=== PATIENT | male | born 1980 | race Hispanic/Latino ===

== ENCOUNTER 2016-07-08 17:05 | Emergency (ER) | payer MEDICARE, MEDICAID ==
--- NOTE | 2016-07-08 18:02 | CT ---
EXAM DESCRIPTION: CT HEAD WITHOUT IV CONTRAST CLINICAL HISTORY: 36 y/o MFall - Hit head COMPARISON: None. TECHNIQUE: Contiguous axial images were obtained through the head without IV contrast. FINDINGS: The ventricles and sulci appear unremarkable. No abnormal areas of decreased density. No acute hemorrhage. No mass lesions. Atherosclerotic calcifications in the distal vertebral arteries. Atherosclerotic calcifications. Mild mucosal thickening within the left maxillary sinus and in some ethmoid air cells. Surgical clips and postsurgical changes in the left facial region. No depressed calvarial fractures. IMPRESSION: No acute intracranial abnormality is identified. Electronically signed by: Saeed Ralph MD 07/08/2016 18:01
--- NOTE | 2016-07-08 18:40 | ED.PDOC ---
History of Present Illness - General Chief Complaint: Head Injury Stated Complaint: Fall in shower - hit head Time Seen by Provider: 07/08/16 18:34 Source: patient, family Additional Information: Patient state just james taking a shower tried to get up from his wheelchair but stepped on slippery floor slipped and fellon his head hitting the commode denies LOC,neck pain,shoulder or hip pain - History of Present Illness Occurred: just prior to arrival Head Injury Location: occipital Method of Injury: fell Loss of Consciousness: no loss of consciousness Associated Symptoms: denies symptoms Allergies/Adverse Reactions: Allergies NO KNOWN ALLERGY Allergy (Verified 06/08/14 18:44) Home Medications: Ambulatory Orders Carvedilol [Coreg] 6.25 mg PO BID #0 01/09/13 Human Insulin Aspart [Novolog] 0 unit SUBCU QID #0 01/09/13 Insulin Glargine [Lantus] 10 unit SC BID #0 01/09/13 Lisinopril 20 mg PO DAILY #0 01/09/13 Guaifenesin-Codeine [Cheratussin AC 100-10 mg/5Ml] 10 ml PO Q4-6H PRN #100 ml Amoxicillin [Amoxil] 500 mg PO TID #30 cap 08/06/14 Valacyclovir HCl [Valtrex] 1 gm PO Q8H #21 tab 11/04/15 Review of Systems - Review of Systems Constitutional: States: no symptoms reported EENTM: States: other - visual problem from cva in the past Respiratory: States: no symptoms reported Cardiology: States: no symptoms reported Gastrointestinal/Abdominal: States: no symptoms reported Genitourinary: States: no symptoms reported Musculoskeletal: States: no symptoms reported Skin: States: no symptoms reported Neurological: States: pre-existing deficit - previous cva from ruptured brain aneurysm, weakness Past Medical History (General) - Patient Medical History Hx Seizures: Yes Hx Stroke: Yes - Brain aneurysm Hx Dementia: No Hx Asthma: Yes Hx of COPD: No Hx Cardiac Disorders: Yes Hx Congestive Heart Failure: No Hx Pacemaker: No Hx Hypertension: Yes Hx Thyroid Disease: No Hx Diabetes: Yes Hx Gastroesophageal Reflux: No Hx Renal Disease: No Hx Cancer: No Hx of HIV: No Hx Hepatitis C: No Hx MRSA: No Other Surgeries:: facial reconstruction,tracheostomy - Vaccination History Hx Tetanus, Diphtheria Vaccination: Yes Hx Influenza Vaccination: Yes Hx Pneumococcal Vaccination: No - Social History Hx Tobacco Use: Yes Hx Chewing Tobacco Use: No Hx Alcohol Use: No Hx Substance Use: No Hx Substance Use Treatment: Yes Hx Depression: Yes Hx Physical Abuse: No Hx Emotional Abuse: No Hx Suspected Abuse: No - Activities of Daily Living Patient Lives Alone: No - lives with family Grooming Ability: Standby Assistance Eating (Feeding) Ability: Standby Assistance Toileting Ability: Standby Assistance - Female History Patient : No Family Medical History - Family History Grandparents Family History: No Known Hx Family Diabetes: Yes Physical Exam - Physical Exam General Appearance: Alert, No apparent distress Head Injury: no evidence of injury, tenderness - back of head Eye Exam: bilateral other - legally blind left eye ENT Exam: hearing grossly normal, no evidence of ENT injury, no dental injury Neck Exam: non-tender, full range of motion, normal alignment Cardiovascular/Respiratory: regular rate, rhythm, no M/R/G, no JVD, normal breath sounds, no respiratory distress Gastrointestinal/Abdominal: non tender, soft, no organomegaly Back Exam: normal inspection, no CVA tenderness Extremity: other - 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 Exam: normal hearing, normal speech, facial weakness - left side residual Coordination/Gait: normal finger to nose, other - wheelchair bound Skin Exam: normal color, warm/dry Lymphatic: no adenopathy - [place] Coma Score Best Eye Response ([place]): (4) open spontaneously Best Verbal Response ([place]): (5) oriented Best Motor Response ([place]): (6) obeys commands [place] Total: 15 Progress - EKG/XRAY/CT CT: head w/o-no acute intracranial abnormality noted Departure - Departure Clinical Impression: Fall at home Qualifiers: Encounter type: initial encounter Qualifier Code: (W19.XXXA) Unspecified fall, initial encounter Head contusion Qualifiers: Encounter type: initial encounter Laterality: unspecified laterality Time of Disposition: 18:52 Disposition: Discharge to Home or Self Care Condition: Good Departure Forms: ED Discharge - Pt. Copy, Patient Portal Self Enrollment Home Medications: Ambulatory Orders Carvedilol [Coreg] 6.25 mg PO BID #0 01/09/13 Human Insulin Aspart [Novolog] 0 unit SUBCU QID #0 01/09/13 Insulin Glargine [Lantus] 10 unit SC BID #0 01/09/13 Lisinopril 20 mg PO DAILY #0 01/09/13 Guaifenesin-Codeine [Cheratussin AC 100-10 mg/5Ml] 10 ml PO Q4-6H PRN #100 ml Amoxicillin [Amoxil] 500 mg PO TID #30 cap 08/06/14 Valacyclovir HCl [Valtrex] 1 gm PO Q8H #21 tab 11/04/15 Additional Instructions: RETURN TO EMERGENCY ROOM NEEDED
[2016-07-08 19:02] VITALS: O2SAT 94
[2016-07-08 19:04] VITALS: BP 129/86; TEMP 97.8
== END 2016-07-08 19:02 | disposition home or self-care (01) ==
LOC: ER 17:05
DX: S00.93XA Contusion of unspecified part of head, initial encounter (principal); J45.909 Unspecified asthma, uncomplicated; I10 Essential (primary) hypertension; E11.9 Type 2 diabetes mellitus without complications; I69.90 Unspecified sequelae of unspecified cerebrovascular disease; Z79.4 Long term (current) use of insulin; Z79.899 Other long term (current) drug therapy; Z87.891 Personal history of nicotine dependence; W01.198A Fall on same level from slipping, tripping and stumbling with subsequent striking against other object, initial encounter; Y93.E1 Activity, personal bathing and showering; Y92.002 Bathroom of unspecified non-institutional (private) residence as the place of occurrence of the external cause

== ENCOUNTER → 2017-10-26 | Outpatient (CLI) | payer MEDICARE, MEDICAID | LOC: LAB.O 15:32 | PROVIDERS: ATTEND Ophthalmology | DX: G90.09 Other idiopathic peripheral autonomic neuropathy (principal); H53.9 Unspecified visual disturbance; H02.539 Eyelid retraction unspecified eye, unspecified lid; H53.40 Unspecified visual field defects; H47.099 Other disorders of optic nerve, not elsewhere classified, unspecified eye; H50.00 Unspecified esotropia; E13.9 Other specified diabetes mellitus without complications ==

== ENCOUNTER 2017-12-21 16:33 | Emergency (ER) | payer MEDICARE, MEDICAID ==
[2017-12-21 17:03] VITALS: O2SAT 95
--- NOTE | 2017-12-21 18:08 | ED.PDOC ---
History of Present Illness - General Chief Complaint: General Stated Complaint: R calf discomfort Time Seen by Provider: 12/21/17 17:23 Source: patient Exam Limitations: no limitations - History of Present Illness Initial Comments: Reggie Henao 37 y/o male stated that he had right calf pain since December 14- one week and had been constant since then .Stated does not feel any pain since he had the hemorrhagic CVA from brain aneurysm -2013.Denies history of trauma or /fall.Has DM2 on insulin and HTN,also has bilateral dvt legs while hospitalized for his cva at [facility]. Timing/Duration: 1 week, constant Severity: moderate Improving Factors: nothing Worsening Factors: nothing Associated Symptoms: denies symptoms Allergies/Adverse Reactions: Allergies NO KNOWN ALLERGY Allergy (Verified 12/21/17 17:06) Home Medications: Ambulatory Orders Carvedilol [Coreg] 6.25 mg PO BID #0 01/09/13 Human Insulin Aspart [Novolog] 0 unit SUBCU QID #0 01/09/13 Insulin Glargine [Lantus] 10 unit SC BID #0 01/09/13 Lisinopril 20 mg PO DAILY #0 01/09/13 Guaifenesin-Codeine [Cheratussin AC 100-10 mg/5Ml] 10 ml PO Q4-6H PRN #100 ml Amoxicillin [Amoxil] 500 mg PO TID #30 cap 08/06/14 Valacyclovir HCl [Valtrex] 1 gm PO Q8H #21 tab 11/04/15 Review of Systems - Review of Systems Constitutional: States: no symptoms reported EENTM: States: no symptoms reported Respiratory: States: no symptoms reported Cardiology: States: no symptoms reported Gastrointestinal/Abdominal: States: no symptoms reported Genitourinary: States: no symptoms reported Musculoskeletal: States: see HPI Neurological: States: see HPI, pre-existing deficit - post cva Endocrine: States: see HPI Past Medical History (General) - Patient Medical History Hx Seizures: Yes Hx Stroke: Yes - hemorrhagic Hx Dementia: No Hx Asthma: Yes Hx of COPD: No Hx Cardiac Disorders: Yes Hx Congestive Heart Failure: No Hx Pacemaker: No Hx Hypertension: Yes Hx Thyroid Disease: No Hx Diabetes: Yes Hx Gastroesophageal Reflux: No Hx Renal Disease: No Hx Cancer: No Hx of HIV: No Hx Hepatitis C: No Hx MRSA: No Surgical History: other - facial reconstuction,tracheostomy - Vaccination History Hx Tetanus, Diphtheria Vaccination: Yes Hx Influenza Vaccination: Yes - 2016 Hx Pneumococcal Vaccination: No - Social History Hx Tobacco Use: Yes - Quit 2013 Hx Chewing Tobacco Use: No Hx Alcohol Use: No Hx Substance Use: No Hx Substance Use Treatment: Yes Hx Depression: Yes Hx Physical Abuse: No Hx Emotional Abuse: No Hx Suspected Abuse: No - Activities of Daily Living Patient Lives Alone: No - parents Grooming Ability: Moderate Assistance Eating (Feeding) Ability: Independent Toileting Ability: Moderate Assistance - Female History Patient : No Family Medical History - Family History Grandparents Family History: No Known Living Status: Still Living Hx Family Diabetes: Yes Physical Exam - Physical Exam General Appearance: Alert, Comfortable, No apparent distress Eye Exam: right normal, left other - enucleation Ears, Nose, Throat: hearing grossly normal, normal ENT inspection, normal pharynx Neck: non-tender, full range of motion, normal inspection Respiratory: chest non-tender, lungs clear, normal breath sounds, no respiratory distress Cardiovascular/Chest: normal peripheral pulses, regular rate, rhythm, no murmur Peripheral Pulses: radial,right: 2+, radial,left: 2+ Gastrointestinal/Abdominal: non tender, soft Back Exam: no CVA tenderness, no vertebral tenderness Extremity: normal inspection, calf tenderness, pedal edema - 1+, other - negative Homans sign Neurologic: alert, oriented x 3, motor weakness - both lower extremity, sensory deficit - lower extremity Skin Exam: normal color, warm/dry Lymphatic: no adenopathy Progress - Progress Progress: 12/21/17 18:19 Vital Signs - 8 hr 12/21/17 16:52 Temperature 98.4 F Pulse Rate [ 78 Left Radial] Respiratory 20 Rate Blood Pressure 128/91 [Left Arm] O2 Sat by Pulse 95 Oximetry 12/21/17 19:37 Discuss test result with patient in the presence of his mom explaining mostly d - dimer result and the need for follow up with his primary MD December 24/2018 - Results/Orders Results/Orders: Laboratory Results - last 24 hr 12/21/17 12/21/17 18:22 18:22 WBC 5.5 RBC 4.98 Hgb 16.5 Hct 48.2 MCV 96.7 H MCH 33.1 H MCHC 34.1 RDW 12.5 Plt Count 252 MPV 8.3 Absolute Neuts (auto) 3.20 Absolute Lymphs (auto) 1.50 Absolute Monos (auto) 0.40 Absolute Eos (auto) 0.30 Absolute Basos (auto) 0.10 Neutrophils % 58.7 Lymphocytes % 27.9 Monocytes % 7.2 Eosinophils % 4.8 Basophils % 1.4 PT 10.9 INR 0.940 PTT (SP) 35.6 D-Dimer, Quantitative 121 Sodium 138 Potassium 4.0 Chloride 103 Carbon Dioxide 29 Anion Gap 10.0 L BUN 21 H Creatinine 1.18 BUN/Creatinine Ratio 17.8 Random Glucose 156 H Serum Osmolality 281.8 Calcium 9.6 Magnesium 1.7 L Total Bilirubin 0.2 Direct Bilirubin < 0.1 Indirect Bilirubin 0.1 L AST 29 ALT 36 Alkaline Phosphatase 83 Creatine Kinase 265 H* CK-MB (CK-2) 23.7 H* CK-MB (CK-2) % 8.94 H Troponin I 0.02 Serum Total Protein 7.4 Albumin 4.0 Departure - Departure Clinical Impression: Leg pain, right, History of DVT of lower extremity Time of Disposition: 19:36 Disposition: Discharge to Home or Self Care Condition: Fair Departure Forms: ED Discharge - Pt. Copy, Patient Portal Self Enrollment Instructions: Deep Vein Thrombosis (Blood Clots in the Legs) (DC), Foot Pumping Exercises, How to Prevent Blood Clots Referrals: Conner Booker MD [Primary Care Provider] - 1-2 Weeks Home Medications: Ambulatory Orders Carvedilol [Coreg] 6.25 mg PO BID #0 01/09/13 Human Insulin Aspart [Novolog] 0 unit SUBCU QID #0 01/09/13 Insulin Glargine [Lantus] 10 unit SC BID #0 01/09/13 Lisinopril 20 mg PO DAILY #0 01/09/13 Guaifenesin-Codeine [Cheratussin AC 100-10 mg/5Ml] 10 ml PO Q4-6H PRN #100 ml Amoxicillin [Amoxil] 500 mg PO TID #30 cap 08/06/14 Valacyclovir HCl [Valtrex] 1 gm PO Q8H #21 tab 11/04/15 Additional Instructions: FOLLOW UP WITH PRIMARY MD 24 December 2017 ;Return to ER as needed
[2017-12-21 20:00] VITALS: BP 131/85; TEMP 97.8
== END 2017-12-21 20:00 | disposition home or self-care (01) ==
LOC: ER 16:33
DX: M79.661 Pain in right lower leg (principal); I10 Essential (primary) hypertension; E11.9 Type 2 diabetes mellitus without complications; Z86.73 Personal history of transient ischemic attack (TIA), and cerebral infarction without residual deficits; Z86.718 Personal history of other venous thrombosis and embolism; Z79.4 Long term (current) use of insulin; Z79.899 Other long term (current) drug therapy

== ENCOUNTER 2018-08-18 13:45 | Inpatient (IN) | payer MEDICARE, MEDICAID ==
[2018-08-18] MEDS ORDERED: KETOROLAC TROMETHAMINE INJ 30 MG/ML VIAL IM ONE (14:02)
[2018-08-18] MEDS ORDERED: IPRATROPIUM/ALBUTEROL 3 ML VIAL NEB ONE ×3 (14:03→16:11)
[2018-08-18] MEDS ORDERED: MAGNESIUM SULFATE PREMIX 4GM 4 GM in PREMIX BAG 1 BAG IVPB ONE (15:23)
[2018-08-18] MEDS ORDERED: SODIUM CHLORIDE 0.9% 1000ML 1,000 ML IVS ONE (15:23)
--- NOTE | 2018-08-18 15:30 | RAD ---
EXAM DESCRIPTION: Femur, right CLINICAL HISTORY: 38 years Male, right leg pain 2 days COMPARISON: None. FINDINGS: 2 view radiographs of the right femur were obtained, including 4 images. There is no evidence of acute fracture or destructive bony lesion. The superior portion of the femoral head is excluded on the AP view but appears intact on the oblique lateral view. The hip joint space and the knee joint spaces appear maintained. IMPRESSION: No significant bony abnormality identified in the right femur. Electronically signed by: Abel Gabriel MD 08/18/2018 3:27 PM [facility]
--- NOTE | 2018-08-18 15:35 | RAD ---
EXAM DESCRIPTION: Tibia/Fibula,Right CLINICAL HISTORY: 38 years Male, right leg pain 2 days COMPARISON: None. FINDINGS: 2 view radiographs of the right lower leg demonstrate no evidence of acute fracture or dislocation or destructive bony lesion. There is minimal cut off of the inferior margin of the lateral malleolus on the AP view. Soft tissues are essentially unremarkable. IMPRESSION: No significant bony abnormality identified in the right lower leg. Electronically signed by: Abel Gabriel MD 08/18/2018 3:32 PM [facility]
--- NOTE | 2018-08-18 15:42 | RAD ---
EXAM DESCRIPTION: Chest,1 View CLINICAL HISTORY: 38 years Male, hypoxia COMPARISON: 2 view chest dated August 06, 2014. FINDINGS: Heart size appears borderline prominent, although accentuated by technique. There is patient rotation to the left, and hilar and mediastinal structures are not well evaluated. The lungs are more underinflated than on the previous study, and in particular, there is again relative elevation of the right hemidiaphragm. The lungs appear grossly clear. No obvious pneumothorax is identified. IMPRESSION: Pulmonary hypoinflation. No radiographic evidence of acute cardiopulmonary disease. Electronically signed by: Abel Gabriel MD 08/18/2018 3:38 PM [facility]
[2018-08-18] MEDS ORDERED: MAGNESIUM SULFATE PREMIX 4GM 50 ML IVPB ONE (15:45)
[2018-08-18] MEDS ORDERED: AZITHROMYCIN IV 500 MG in SODIUM CHLORIDE 0.9% 250ML 250 ML IVPB ONE (16:04)
[2018-08-18] MEDS ORDERED: CEFEPIME 2 GM in SODIUM CHL 0.9% 50ML MIN-BAG+ 50 ML IVPB ONE (16:05)
[2018-08-18] MEDS ORDERED: ACETYLCYSTEIN 20 % 6,000 MG/30 ML VIAL NEB ONE (16:11)
[2018-08-18] MEDS ORDERED: CEFEPIME 2 GM VIAL ONE (16:25)
[2018-08-18] MEDS ORDERED: SODIUM CHL 0.9% 50ML MIN-BAG+ 50 ML IVPB ONE (16:26)
--- NOTE | 2018-08-18 16:27 | ED.PDOC ---
History of Present Illness - General Chief Complaint: General Stated Complaint: R leg discomfort x 3 months Time Seen by Provider: 08/18/18 13:46 Source: patient Exam Limitations: no limitations - History of Present Illness Initial Comments: The patient is a 38-year-old male presenting to the emergency room mainly due to right lower extremity pain. He does have some chronic pain in the right lower extremity but pain got worse 3 days ago after he was being pushed in his wheelchair and home his right foot on a door jam which brought his right leg around and strained the leg. He has been having significant pain since that time and has not really been getting out of bed and moving around. He is a little more fatigued than normal but does not really feel all that short of breath. He has however 87% on room air and does correct to 93% with 3 L. The patient has coarse rhonchi and significant Rales at bilateral bases. No real wheezes currently. He is mildly tachypneic upon arrival. He does not really appear to be in respiratory distress. Again the main reason he showed up here with right lower extremity pain. 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 He also has a history of a hemorrhagic stroke giving him some weakness, balance problems, slurring of speech and visual issues. the patient is alert and oriented and very knowledgeable about his medical history. He is pleasant and cooperative. The patient really prefers to lie on the left side secondary to the right lower extremity pain. He is on chronic pain medications but has had his pain medications reduced over the last few months as per his request. He is an insulin-dependent diabetic. He reports fair control recently. Passive and active range of motion of the right lower extremity are preserved. He does have some chronic decreased sensation to the right lower extremity which is at its baseline. The pain that he is reporting is more of a deep achy type pain in the thigh, which is a little worse with palpation and significantly worse with movement. He also has some mild pain posteriorly just above the ankle on the right. No definite palpable cord. This is not any worse with palpation. No chest pain, palpitations or acute onset shortness of breath. No history of any heart problems according to him. Timing/Duration: unsure Severity: moderate Improving Factors: nothing Worsening Factors: movement Associated Symptoms: denies symptoms Allergies/Adverse Reactions: Allergies NO KNOWN ALLERGY Allergy (Verified 12/21/17 17:06) Home Medications: Ambulatory Orders Amlodipine Besylate 5 mg PO BID 08/18/18 Baclofen 10 mg PO BID 08/18/18 Carbamazepine 300 mg PO TID 08/18/18 Carvedilol 25 mg PO BID 08/18/18 Chlorthalidone 50 mg PO BID 08/18/18 Clonazepam 1 mg PO BID 08/18/18 Gabapentin 300 mg PO TID 08/18/18 Insulin Glargine [Toujeo Solostar] 55 unit SC DAILY 08/18/18 Insulin Lispro [Humalog] 0 unit SC QID PRN 08/18/18 Oxycodone HCl 10 mg PO BID 08/18/18 Review of Systems - Review of Systems Constitutional: States: malaise EENTM: States: no symptoms reported Respiratory: States: cough - increased productivity of sputum compared to normal Cardiology: States: no symptoms reported Gastrointestinal/Abdominal: States: no symptoms reported Genitourinary: States: no symptoms reported Musculoskeletal: States: see HPI Skin: States: no symptoms reported Neurological: States: see HPI - numerous chronic changes Endocrine: States: no symptoms reported, increased thirst All other Systems: No Change from Baseline Past Medical History (General) - Patient Medical History Hx Seizures: Yes Hx Stroke: Yes - 2013 Hx Dementia: No Hx Asthma: Yes Hx of COPD: No Hx Cardiac Disorders: Yes Hx Congestive Heart Failure: No Hx Pacemaker: No Hx Hypertension: Yes Hx Thyroid Disease: No Hx Diabetes: Yes Hx Gastroesophageal Reflux: No Hx Renal Disease: No Hx Cancer: No Hx of HIV: No Hx Hepatitis C: No Hx MRSA: No - Vaccination History Hx Tetanus, Diphtheria Vaccination: Yes Hx Influenza Vaccination: No Hx Pneumococcal Vaccination: No - Social History Hx Tobacco Use: Yes Hx Chewing Tobacco Use: No Hx Alcohol Use: No Hx Substance Use: No Hx Substance Use Treatment: Yes Hx Depression: Yes Hx Physical Abuse: No Hx Emotional Abuse: No Hx Suspected Abuse: No - Female History Patient : No Family Medical History - Family History Grandparents Family History: No Known Living Status: Still Living Hx Family Diabetes: Yes Physical Exam - Physical Exam General Appearance: Alert, No apparent distress Eye Exam: bilateral other - abnormal extraocular movements with bilateral mild proptosis which family reports is normal Ears, Nose, Throat: hearing grossly normal, normal ENT inspection, other - his voice is hoarse. His speech is slurred. Neck: non-tender, full range of motion Respiratory: accessory muscle use - mild, rales - at the bases, rhonchi - scattered throughout Cardiovascular/Chest: normal peripheral pulses, regular rate, rhythm, no edema Peripheral Pulses: radial,right: 2+, radial,left: 2+, dorsalis pedis,right: 2+, dorsalis pedis,left: 2+ Gastrointestinal/Abdominal: non tender - morbidly obese, soft Rectal Exam: deferred Back Exam: no CVA tenderness, no vertebral tenderness Extremity: normal range of motion - passive, no pedal edema, no calf tenderness - to palpation but he does report some pain to the right calf, normal capillary refill, pelvis stable Neurologic: alert, normal mood/affect, oriented x 3, EOM palsy, motor weakness, other - chronic neurological changes are present, but no acute changes according to patient andd his family Skin Exam: normal color Comments: Vital Signs - 24 hr 08/18/18 08/18/18 08/18/18 13:45 14:24 14:30 Temperature 97.6 F Pulse Rate 92 H Pulse Rate [ 103 H 98 H Left Radial] Respiratory 20 20 16 Rate Blood Pressure 155/120 145/112 [Left Arm] O2 Sat by Pulse 87 L 93 L 93 L Oximetry 08/18/18 08/18/18 08/18/18 15:00 16:00 16:24 Temperature Pulse Rate 86 Pulse Rate [ 58 L 91 H Left Radial] Respiratory 20 20 12 Rate Blood Pressure 144/102 97/81 [Left Arm] O2 Sat by Pulse 93 L 92 L 95 Oximetry the lower blood pressure 97/81 is with the patient lying sideways in the blood pressure cuff up in the air. Progress - Progress Progress: 08/18/18 16:34 the patient is a 38-year-old male presenting to the emergency room with right lower extremity pain that is most likely due to hyperextending or hyperabducting the leg a few days ago accidentally. He has received a dose of Toradol for this and can continue his pain medications that he normally takes. Additionally the patient has been found to be significantly hypoxic with significant atelectasis and what is probably a superimposed pneumonia. blood and sputum cultures are being done. He is receiving DuoNeb breathing treatments and Mucomyst breathing treatments. We are also doing BiPAP on the patient to help recruit lung tissue. D-dimer and BNP are within normal limits. However, tomorrow when it is available, a right lower extremity Doppler can be performed to make sure that there is no evidence of any recurrent DVT. He reports that he does still take eliquis. He has been compliant with it and did take a dose this morning. He may benefit from CPT. Continue aggressive respiratory care as well as encouraging position changes and deep breathing. It is possible patient may have underlying pickwickian syndrome. He will simply need to be monitored to determine this. An ABG when the patient is more at his baseline may be more telling as well. admit for continued care. Continue oxygen. He has received a very small fluid bolus for the mild acute renal failure and is receiving a dose of IV magnesium for the hypomagnesemia. This may be making the muscle cramping worse. 08/18/18 16:40 - Results/Orders Results/Orders: Single view chest x-ray shows poor inflation of the lung tissue. No overt card iomegaly. Laboratory Tests 08/18/18 08/18/18 08/18/18 14:37 14:37 14:37 WBC 6.6 RBC 5.14 Hgb 16.8 Hct 50.1 MCV 97.6 H MCH 32.7 H MCHC 33.5 RDW 12.6 Plt Count 238 MPV 8.0 Absolute Neuts (auto) 5.00 Absolute Lymphs (auto) 1.00 Absolute Monos (auto) 0.40 Absolute Eos (auto) 0.20 Absolute Basos (auto) 0.00 Neutrophils % 75.3 Lymphocytes % 15.9 L Monocytes % 5.4 Eosinophils % 2.7 Basophils % 0.7 PTT (SP) 32.8 H D-Dimer, Quantitative 0.33 Sodium 140 Potassium 4.4 Chloride 102 Carbon Dioxide 26 Anion Gap 16.4 BUN 28 H Creatinine 1.59 H BUN/Creatinine Ratio 17.6 Random Glucose 171 H Serum Osmolality 288.9 Lactic Acid Calcium 9.2 Magnesium 1.5 L Total Bilirubin 0.7 AST 32 ALT 31 Alkaline Phosphatase 87 Creatine Kinase 351 H* CK-MB (CK-2) 16.6 H* CK-MB (CK-2) % 4.73 H Troponin I 0.02 B-Natriuretic Peptide < 5.0 Serum Total Protein 7.5 Albumin 3.8 Globulin 3.7 H Albumin/Globulin Ratio 1.0 L 08/18/18 14:37 WBC RBC Hgb Hct MCV MCH MCHC RDW Plt Count MPV Absolute Neuts (auto) Absolute Lymphs (auto) Absolute Monos (auto) Absolute Eos (auto) Absolute Basos (auto) Neutrophils % Lymphocytes % Monocytes % Eosinophils % Basophils % PTT (SP) D-Dimer, Quantitative Sodium Potassium Chloride Carbon Dioxide Anion Gap BUN Creatinine BUN/Creatinine Ratio Random Glucose Serum Osmolality Lactic Acid 1.1 Calcium Magnesium Total Bilirubin AST ALT Alkaline Phosphatase Creatine Kinase CK-MB (CK-2) CK-MB (CK-2) % Troponin I B-Natriuretic Peptide Serum Total Protein Albumin Globulin Albumin/Globulin Ratio EKG shows normal sinus rhythm at 95 bpm. Q waves in inferior leads. No ST segment or T-wave changes demonstrative of acute ischemia. Departure - Departure Clinical Impression: Atelectasis of both lungs, Hypomagnesemia, Hypoxia Pneumonia Qualifiers: Pneumonia type: due to unspecified organism Laterality: bilateral Lung location: lower lobe of lung Qualified Code(s): J18.1 - Lobar pneumonia, unspecified organism Acute renal failure Qualifiers: Acute renal failure type: unspecified Qualified Code(s): N17.9 - Acute kidney failure, unspecified Disposition: Admit Patient Departure Forms: ED Discharge - Pt. Copy, Patient Portal Self Enrollment Referrals: Conner Booker MD [Primary Care Provider] - 1-2 Weeks Home Medications: Ambulatory Orders Amlodipine Besylate 5 mg PO BID 08/18/18 Baclofen 10 mg PO BID 08/18/18 Carbamazepine 300 mg PO TID 08/18/18 Carvedilol 25 mg PO BID 08/18/18 Chlorthalidone 50 mg PO BID 08/18/18 Clonazepam 1 mg PO BID 08/18/18 Gabapentin 300 mg PO TID 08/18/18 Insulin Glargine [Toujeo Solostar] 55 unit SC DAILY 08/18/18 Insulin Lispro [Humalog] 0 unit SC QID PRN 08/18/18 Oxycodone HCl 10 mg PO BID 08/18/18 Decision To Admit - Decistion To Admit Decision to Admit Reason: Medical Nature Decision to Admit Date: 08/18/18 Decision to Admit Time: 16:42
--- NOTE | 2018-08-18 16:57 | HP ---
SUPERVISING PHYSICIAN: Jeffery Li MD CHIEF COMPLAINT: Right lower leg discomfort. HISTORY OF PRESENT ILLNESS: Mr. Henao is a 38 year-old male who presented to the Emergency Room today with complaints of right lower extremity pain. He has a history of a previous cerebral aneurysm in 2013 that resulted in some lower extremity weakness. He is wheelchair dependent but is able to transfer with minimal assistance. He reports that in the last several days he had an issue with his wheelchair when he was struck in a door jam with his right leg and the week before actually gone down his wheelchair ramp and had fallen out of the wheelchair due to the wheelchair tipping over. He normally has a degree of pain in his right lower extremity but the pain has been significantly worsening over the last week, especially more so in the last 3 days. He tells me that he has been basically laying in bed in a position as that is the only position he could get comfortable in. He has been managed on pain management and seeing a physician in [facility] in the past week and has been on fairly high doses of Oxycodone and has taken himself down in dosage as he feels he has been on too high of a dose over the last several years. He does report he is fairly active at home but in the last several days he just lays in bed. He also has a history of a DVT after his stroke in 2013, bilateral lower extremities that resulted in a pulmonary embolus which he has now been on Eliquis. In the Emergency Room, his vital signs showed he was hypoxic on room air at 87% and was also fairly hypertensive with a blood pressure of 155/120 and tachycardiac. He was given breathing treatments which resulted in increasing his 02 to 93% on nasal cannula. Laboratory studies showed he had a normal white count. Chemistries showed his renal function was slightly elevated with a creatinine of 1.59 but magnesium was low at 1.5. His physical assessment revealed audible bilateral rales and rhonchi, even with a stethoscope. Radiographic studies of a chest x-ray showed pulmonary hypoinflation but no evidence of acute cardiopulmonary disease. He also had his tib/fib and femur on the right x-rayed with no acute findings of fracture or dislocation. Coagulation studies showed he had a PT of 32.9. D-dimer was normal at 0.33. Dr. Alicia started the patient on BiPAP in efforts to recruit some more lung area given that the patient was obviously having a large degree of atelectasis, especially on the left side as he had been basically nothing but laying in the position for several days. The concern is that he has developed pneumonia and at that point, the decision was to start him on Cefepime and azithromycin as well as breathing treatments with Duoneb. It has been requested now that the patient be admitted for continuation of management and further evaluation with concerns for possibly developing community acquired pneumonia and need to scan his lower extremities with the history of a DVT even though his D-dimer was negative. Again, he was also showing some hypertensive issues and this will need to be further addressed in regards to his medication regimen. He was admitted in stable condition. PAST MEDICAL HISTORY: 1. Hypertension. 2. Diabetes mellitus type 2. 3. Hemorrhagic stroke in 2013 with residual left-sided facial weakness and bilateral lower extremity weakness. 4. Pulmonary embolus with DVT in 2014 status post hemorrhagic stroke. PAST SURGICAL HISTORY: No major surgeries listed. CURRENT MEDICATIONS: Awaiting final review. Provided were: 1. Multivitamins and minerals, one daily. 2. Eliquis 5 mg daily. 3. Clonazepam 1 mg daily. 4. Lisinopril 40 mg daily. 5. Gabapentin 600 mg t.i.d. 6. Carbamazepine 300 mg t.i.d. 7. Humalog sliding scale. 8. Toujeo 55 units daily. 9. Baclofen 10 mg b.i.d. 10. Amlodipine 5 mg b.i.d. 11. Chlorthalidone 50 mg b.i.d. 12. Carvedilol 25 mg b.i.d. ALLERGIES: No known drug allergies. FAMILY HISTORY: Mother has history of hypertension. Father has history of hypertension, both living. His paternal grandfather at age 72 from diabetes complications. He has 5 children who are all healthy. SOCIAL HISTORY: The patient is disabled, living by himself, raising 2 children, they are in the 5th and 6th grade, with assistance from his parents and other family members. He has never smoked. He drinks alcohol very rarely and denies any history of drug use. He is wheelchair bound. REVIEW OF SYSTEMS: CONSTITUTIONAL: General malaise. Negative for chills, fevers, or intentional weight changes. HEENT: Negative for any nasal congestion, earache, sore throat. RESPIRATORY: Increasing productive sputum with a cough with positive shortness of breath but negative for any wheezing. CARDIAC: Negative for chest pain, palpitations, syncopal episodes. GASTROINTESTINAL: Negative for nausea, vomiting, diarrhea , constipation or abdominal pain. GENITOURINARY Denies dysuria, hematuria, polyuria MUSCULOSKELETAL: As noted in history of present illness. SKIN: Negative for skin breakdown, rashes or lesions. NEUROLOGICAL: Positive for multiple chronic changes secondary to hemorrhagic stroke in 2014 as noted in history of present illness. PHYSICAL EXAMINATION: VITAL SIGNS: On presentation to the Emergency Room his temperature was 97.6, pulse 103, blood pressure 155/120, respirations 20, saturation 97% on room air, after [id number] of treatment and started on BiPAP, after breathing treatments blood pressure was 97/81, respirations 20, saturation 92% on 28% FI02 on BIPAP. Admission weight 126.1 kg. GENERAL: The patient is very pleasant, appears to be in no acute distress. HEENT: Tympanic membranes were clear bilaterally, notable bilateral proptosis which is his baseline according to the patient with abnormal ocular movements status post hemorrhagic stroke. Oropharynx pink and moist without any lesions. He does have some mild slurring of speech which is apparently his baseline level. NECK: Supple, non-tender, full range of motion. CHEST: Notable for some rales at the bases with increased rhonchi throughout all velásquez with some obvious accessory muscle usage prior to BiPAP. CARDIOVASCULAR: Regular rate and rhythm with no appreciable murmurs, rubs, or gallops. ABDOMEN: Morbidly obese but soft, non-tender with positive bowel sounds. BACK: No CVA tenderness, no vertebral tenderness. EXTREMITIES: Notable for some pain on palpation of the right calf and hip area. Pelvis ring appears to be stable. He does have normal range of motion, both passive and active. No reported paresthesia and pulses distally to 2+ bilaterally. NEUROLOGIC: He is alert and oriented x 3. Extraocular movement palsy as noted above status post hemorrhagic stroke and at baseline levels with overall motor weakness, chronic to upper and lower extremities with no obvious focal deficits. Facial features show a left droop with proptosis more pronounced on the left than the right which is at baseline levels according to the patient with no reported neurological changes per the patient and family. SKIN: Normal, pink, warm and dry with no lesions, rashes or bruising deformities. RECTAL: Exam deferred. LABORATORY: CBC showed normal white count of 6,600, no left shift. Coagulation studies showed a PT of 32.8 with a normal D-dimer. Chemistries showed normal electrolytes, BUN elevated at 28, creatinine 1.59. Lactic acid normal at 1.9, magnesium low at 1.5. Liver functions all within normal limits. CPK was elevated at 351. Troponin was within normal limits at 0.02. BNP less than 5. Albumin 3.8. Urinalysis pending. Blood cultures pending. Influenza A and B by PCR showed negative for A and B. RADIOLOGY: Tib/fib and femur x-ray of the right lower extremity without any acute findings. Single-view chest x-ray showed pulmonary hypoinflation, no radiographic evidence of acute cardiopulmonary disease. EKG showed normal sinus rhythm at 95 [id number] segment or T-wave changes indicating acute ischemia or an acute coronary syndrome or sub-injury pattern, no comparison available. ASSESSMENT: 1. Hypoxia with severe atelectasis bilaterally from immobility with concerns for developing pneumonia, improving with BIPAP. 2. 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 3. Electrolyte imbalance with a moderate hypomagnesemia, uncertain etiology, requiring parenteral replacement. 4. Acute renal failure, uncertain etiology, possibly prerenal azotemia. 5. Previous hemorrhagic stroke in 2014 with residual bilateral lower extremity weakness and left-sided facial paralysis with no reported changes from baseline, 6. Diabetes mellitus type 2 on Toujeo and sliding scale. 7. Chronic pain management on Oxycodone. 8. Morbid obesity with concerns for underlying pickwickian syndrome. PLAN: The patient is going to be admitted to the medical/surgical floor for further evaluation and treatment. He was started on BiPAP in the Emergency Room. Will continue this and add aggressive pulmonary hygiene with q.i.d. Duoneb treatments and chest percussive therapy. The patient reports that he does not have any problems with aspiration and current x-ray is not with any acute findings. Will continue the antibiotics but will keep him on Levaquin and azithromycin at this point. Will repeat labs in the morning, chest x-ray after a trial of BiPAP overnight and wean him down to room air if possible. Will continue to monitor the patient in consideration for a possible lower extremity ultrasound at this point, given the patient has a negative D-dimer and is on Eliquis. Will hold off on doing an ultrasound of the lower extremities as there is no edema noted at this point. Will get a physical therapy evaluation to make sure the patient is at his baseline activities to continue with activities of daily living. I have also ordered Test Driver consultations given the patient is significantly disabled and apparently lives by himself taking care of 2 adolescent children to see if he needs any assistance, although he reports his family is very much supportive. We will go ahead and put him on some maintenance IV fluids and see if we can clean up his renal function. Will review his home medications and work to try to get his pain on the right leg under control. We might possibly need to look at doing a CT of the hip or referral to Dr. Hill for outpatient management of a lower extremity pain. Will anticipate length of stay to be 2 to 3 days with the patient being an extreme risk from his recent inactivity and concerns for developing pneumonia. Until he can transition to outpatient management, we will continue to monitor and treat as needed. #[id number] MTDD
[2018-08-18] MEDS ORDERED: AZITHROMYCIN IV 500 MG VIAL IVPB ONE (17:20)
[2018-08-18] MEDS ORDERED: SODIUM CHLORIDE 0.9% 250ML 250 ML ONE (17:20)
[2018-08-18] MEDS ORDERED: DEXTROSE 50% 25 GM/50 ML SYG IV PRN (17:59)
[2018-08-18] MEDS ORDERED: ONDANSETRON INJ 4 MG/2 ML VIAL IV PRN (17:59)
[2018-08-18] MEDS ORDERED: ALBUTEROL SULFATE 2.5 MG/3 ML VIAL NEB PRN (17:59)
[2018-08-18] MEDS ORDERED: GLUCAGON INJ 1 MG VIAL SUBCU PRN (17:59)
[2018-08-18] MEDS ORDERED: SODIUM CHLORIDE 0.9% (FLUSH) 10 ML SYG IV PRN (17:59)
[2018-08-18] MEDS: IV SET AND CAP CHANGE INJ INJ SCH (18:14)
[2018-08-18] MEDS: SODIUM CHLORIDE 0.9% 1000ML 1,000 ML IVS PRN (18:17)
[2018-08-18] MEDS: IPRATROPIUM/ALBUTEROL 3 ML VIAL INH SCH (20:40)
[2018-08-18] MEDS ORDERED: carBAMazepine 200 MG TAB PO SCH (21:00)
[2018-08-18] MEDS ORDERED: NON-FORMULARY MEDICATION 1 EA MIS (Carvedilol [Carvedilol] 25 MG) PO SCH (21:00)
[2018-08-18] MEDS: INSULIN LISPRO 100 UNITS/ML PEN SUBCU SCH (21:00)
[2018-08-18] MEDS ORDERED: CHLORTHALIDONE 50 MG PO SCH (21:00)
[2018-08-18] MEDS ORDERED: CARBAMAZEPINE 300 MG PO SCH (21:00)
[2018-08-18] MEDS ORDERED: CARVEDILOL 12.5 MG TAB ONE (21:33)
[2018-08-18] MEDS ORDERED: CHLORTHALIDONE 25 MG TAB ONE (21:33)
[2018-08-18] MEDS ORDERED: carBAMazepine 200 MG TAB ONE (21:34)
[2018-08-18] MEDS: amLODIPine BESYLATE 5 MG TAB PO SCH (21:40)
[2018-08-18] MEDS: BACLOFEN 10 MG TAB PO SCH (21:40)
[2018-08-18] MEDS: GABAPENTIN 300 MG CAP PO SCH (21:40)
[2018-08-18] MEDS: CHLORTHALIDONE 25 MG TAB PO SCH (21:52)
[2018-08-18] MEDS: CARVEDILOL 12.5 MG TAB PO SCH (21:52)
[2018-08-18] MEDS: carBAMazepine 200 MG TAB PO SCH (21:57)
[2018-08-19] MEDS: TEMAZEPAM 15 MG CAP PO PRN ×2 (00:13→22:12)
[2018-08-19] MEDS ORDERED: APIXABAN 2.5 MG TAB PO ONE (06:59)
[2018-08-19] MEDS ORDERED: SODIUM CHL 0.9% 50ML MIN-BAG+ 50 ML IVPB ONE (07:00)
[2018-08-19] MEDS ORDERED: LISINOPRIL 10 MG TAB ONE (07:00)
[2018-08-19] MEDS ORDERED: cefTRIAXone SODIUM 1 GM VIAL ONE (07:00)
[2018-08-19] MEDS: SODIUM CHLORIDE 0.9% 1000ML 1,000 ML IVS PRN ×2 (07:16→22:17)
[2018-08-19] MEDS: INSULIN LISPRO 100 UNITS/ML PEN SUBCU SCH ×4 (07:34→21:06)
[2018-08-19] MEDS: IPRATROPIUM/ALBUTEROL 3 ML VIAL INH SCH ×4 (07:45→19:53)
--- NOTE | 2018-08-19 08:00 | RAD ---
EXAM DESCRIPTION: Chest,1 View CLINICAL HISTORY: Pneumonia FINDINGS/ IMPRESSION: Comparison 08/18/2018 Continued elevation of the right hemidiaphragm up to the level of the right hilum. This can be seen with diaphragmatic paralysis, eventration or even hernia. However, this is a long-standing finding seen back on August 06, 2014 as well Heart size and mediastinal contours are normal. No pulmonary edema, alveolar consolidation or effusion No pneumothorax Electronically signed by: Rodolfo Hines MD 08/19/2018 7:56 AM [facility]
[2018-08-19] MEDS ORDERED: NON-FORMULARY MEDICATION 1 EA MIS (Apixaban [Eliquis] 5 MG) PO SCH (09:00)
[2018-08-19] MEDS: cefTRIAXone SODIUM 1 GM in SODIUM CHL 0.9% 50ML MIN-BAG+ 50 ML IVPB SCH (09:03)
[2018-08-19] MEDS: carBAMazepine 200 MG TAB PO SCH ×3 (09:04→20:36)
[2018-08-19] MEDS: CARVEDILOL 12.5 MG TAB PO SCH ×2 (09:05→20:33)
[2018-08-19] MEDS: CHLORTHALIDONE 25 MG TAB PO SCH ×2 (09:05→20:34)
[2018-08-19] MEDS: BACLOFEN 10 MG TAB PO SCH ×2 (09:05→20:35)
[2018-08-19] MEDS: GABAPENTIN 300 MG CAP PO SCH ×3 (09:05→20:37)
[2018-08-19] MEDS: LISINOPRIL 10 MG TAB PO SCH (09:05)
[2018-08-19] MEDS: amLODIPine BESYLATE 5 MG TAB PO SCH ×2 (09:06→20:37)
--- NOTE | 2018-08-19 10:50 | US ---
EXAM DESCRIPTION: Venous,Lower Extremity RT CLINICAL HISTORY: Hx of DVT in RLE with new onset of calf pain COMPARISON: None Available. TECHNIQUE: Right lower extremity venous duplex FINDINGS: Doppler evaluation of the right lower extremity deep veins was performed. Normal color flow is seen in the common femoral, superficial femoral, profunda femoral and greater saphenous veins. Normal flow is seen in the popliteal vein and veins below the knee in the calf. Normal venous compressibility and flow augmentation. IMPRESSION: Negative for evidence of deep venous thrombosis on right lower extremity venous Doppler sonogram. Electronically signed by: David Osborn MD 08/19/2018 10:47 AM [facility]
[2018-08-19] MEDS: ACETAMINOPHEN 325 MG TAB PO PRN ×2 (11:41→20:38)
[2018-08-19] MEDS: IBUPROFEN 400 MG TAB PO PRN (13:17)
[2018-08-19] MEDS ORDERED: AZITHROMYCIN IV 500 MG VIAL IVPB ONE (14:36)
[2018-08-19] MEDS ORDERED: SODIUM CHLORIDE 0.9% 250ML 250 ML ONE (14:36)
--- NOTE | 2018-08-19 15:47 | PN ---
SUPERVISING PHYSICIAN: Fred Melendez MD DATE: 08/19/18 SUBJECTIVE: The patient was on BiPAP throughout the night and did well although he is barely maintaining O2 saturations of 92% and he was on BiPAP. He is still complaining of pain in his right calf although there is no obvious swelling. He does have a cough that is productive, but he it is nearly his normal cough. 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 He has run a low grade fever today and has been mildly tachycardic. He complains of no chest pains. OBJECTIVE: VITAL SIGNS: Temperature 100.2. Pulse 107. Blood pressure 91/57. Respirations 20. Oxygen saturation 91%. I&Os show negative balance of 1500 with weight 126.1 kg. GENERAL: The patient is sitting upright in bed, resting, appears to be in no acute distress. He is alert and very pleasant. CHEST: Lung sounds are diminished towards the bases bilaterally. No wheezing, but very faint rhonchi heard to the upper apices, but seem to clear with him clearing his airway and coughing. HEART: Regular rate and rhythm. ABDOMEN: Obese, but soft and nontender. Positive bowel sounds. EXTREMITIES: No cyanosis, clubbing or edema. There is continued pain on palpation of the right calf posteriorly. No swelling is noted. NEUROLOGIC: Alert and oriented times three with residual lower extremity weakness and right sided weakness from previous stroke with left sided facial drooping. No other focal deficits are noted. LABORATORY: White count is within normal limits, but a left shift is noted today. White count 8,800. Chemistries show normal electrolytes with BUN 20, creatinine slightly elevated at 1.81. Blood sugars range between 96 and 159. Magnesium 1.8, CPK down to 226. MICROBIOLOGY: Urine culture pending. Sputum culture pending. Blood cultures continue to be negative. RADIOLOGY: Repeat chest x-ray this morning per radiologic interpretation shows continued elevation of right hemidiaphragm to the level of the right hilum which could be seen during diaphragmatic paralysis or eventration or even a hernia, however, this appears to be longstanding, back to July of 2014. Heart size and mediastinum contours are normal. There is no pulmonary edema, alveolar consolidations or effusions, no pneumothorax. Lower extremity ultrasound of the right calf per radiologic interpretation shows no evidence for DVT. ASSESSMENT: 1. Febrile illness with concerns for possible developing pneumonia versus underlying urinary tract infection. 2. Hypoxia on room air, probably due to severe atelectasis bilaterally from immobility in the recent week, again, with concerns for developing pneumonia, showing some slight improvement with BiPAP. 3. Right leg pain without any evidence of deep venous thrombosis, uncertain etiology, possibly related to muscle cramps. Continue to monitor. 4. Electrolyte imbalance with a moderate hypomagnesemia on admission, uncertain etiology, but improving and back to baseline levels with parenteral replacement. 5. Acute renal failure, uncertain etiology, possibly prerenal azotemia with considerations for possible post renal with some urinary retention based on his last urinalysis indicating urinary tract infection with the patient on parenteral antibiotic currently. 6. Diabetes mellitus, type 2, on Toujeo and sliding scale, fairly stable. 7. History of hemorrhagic stroke in 2013 with residual bilateral lower extremity weakness and left-sided facial paralysis with no reported changes from baseline. 8. Chronic pain management on oxycodone. 9. Morbid obesity with concerns for possible underlying pickwickian syndrome given his significant desaturations while sleeping with the patient more likely having some degree of obstructive sleep apnea I suspect from his previous hemorrhagic stroke. PLAN: We will continue with antibiotic coverage given he does have a fever. I will check a flu on him and he will continue on DuoNeb treatments. We will await his urine culture results to further target antibiotic therapy. I will resume his home medications except for Toujeo which we will address with Levemir as his blood sugars indicate a need for a long-acting insulin. He will continue with BiPAP assist control management in efforts to continue to recruit additional lung area to hopefully increase his SPO2. Again, there is still possibility he could be developing a pneumonia and will continue to monitor closely. We will anticipate at least another 24 to 48 hours hospitalization. Until he can transition to outpatient management, we will continue to monitor and treat as needed. #[id number] [facility]
[2018-08-19] MEDS: AZITHROMYCIN IV 500 MG in SODIUM CHLORIDE 0.9% 250ML 250 ML IVPB SCH (15:58)
[2018-08-20] MEDS: IBUPROFEN 400 MG TAB PO PRN (03:34)
[2018-08-20] MEDS: INSULIN LISPRO 100 UNITS/ML PEN SUBCU SCH ×4 (07:28→21:07)
[2018-08-20] MEDS ORDERED: SODIUM CHL 0.9% 50ML MIN-BAG+ 50 ML IVPB ONE (08:56)
[2018-08-20] MEDS ORDERED: cefTRIAXone SODIUM 1 GM VIAL ONE (08:57)
[2018-08-20] MEDS: IPRATROPIUM/ALBUTEROL 3 ML VIAL INH SCH ×4 (09:25→19:36)
[2018-08-20] MEDS: cefTRIAXone SODIUM 1 GM in SODIUM CHL 0.9% 50ML MIN-BAG+ 50 ML IVPB SCH (09:25)
[2018-08-20] MEDS: LISINOPRIL 10 MG TAB PO SCH (09:34)
[2018-08-20] MEDS: CHLORTHALIDONE 25 MG TAB PO SCH ×2 (09:35→20:50)
[2018-08-20] MEDS: amLODIPine BESYLATE 5 MG TAB PO SCH ×2 (09:36→20:51)
[2018-08-20] MEDS: GABAPENTIN 300 MG CAP PO SCH ×3 (09:36→20:50)
[2018-08-20] MEDS: APIXABAN 2.5 MG TAB PO SCH (09:37)
[2018-08-20] MEDS: BACLOFEN 10 MG TAB PO SCH ×3 (09:37→20:50)
[2018-08-20] MEDS: carBAMazepine 200 MG TAB PO SCH ×3 (09:37→20:51)
[2018-08-20] MEDS: CARVEDILOL 12.5 MG TAB PO SCH ×2 (09:39→20:50)
[2018-08-20] MEDS: SODIUM CHLORIDE 0.9% 1000ML 1,000 ML IVS PRN (12:15)
[2018-08-20] MEDS ORDERED: SODIUM CHLORIDE 0.9% 250ML 250 ML ONE (15:44)
[2018-08-20] MEDS ORDERED: AZITHROMYCIN IV 500 MG VIAL IVPB ONE (15:45)
[2018-08-20] MEDS: AZITHROMYCIN IV 500 MG in SODIUM CHLORIDE 0.9% 250ML 250 ML IVPB SCH (15:52)
--- NOTE | 2018-08-20 18:02 | PN ---
DATE: 08/20/18 SUPERVISING PHYSICIAN: Lenard Melendez M.D. SUBJECTIVE: The patient has been able to maintain his O2 throughout the night off BiPAP, but does desaturate without the assistance of oxygen. He has had a productive cough. Sputum was sent for cultures. He continues to report he has had some muscle cramps in his right lower leg. We did discuss the fact that his ultrasound on the right leg was negative for any DVT. OBJECTIVE: VITAL SIGNS: Temperature 98.3, pulse 82, blood pressure 149/92, respirations 18, satting 93% on nasal cannula at 3 liters. Shows a negative balance of 600 with 2550 in, 3150 out. Weight 127.5 kg. GENERAL: The patient is resting comfortably. Appears to be in no acute distress. Continues to utilize nasal cannula. He is alert. CHEST: Lung sounds remain diminished towards the base bilaterally with continued rhonchi heard throughout both upper apices. HEART: Regular rate and rhythm. ABDOMEN: Obese, soft, non-tender. Positive bowel sounds. EXTREMITIES: Show to be without any edema. NEUROLOGIC: He is alert and oriented times three. LABORATORY: Chemistries now show normal electrolytes with potassium 4, BUN 23, creatinine 1.28 down from 1.81, calcium 8.1. Blood sugars remain stable between 139 to 181. MICROBIOLOGY: Sputum culture and urine culture is pending. Blood cultures remain negative at 24 hours. RADIOLOGY: Lower extremity ultrasound of the right leg was without any findings of thrombus. ASSESSMENT: 1. Left sided pneumonia, community acquired. 2. Urinary tract infection with cultures pending. 3. Hypoxia due to #1 and continued atelectasis showing improvement with BiPAP. 4. Right leg pain, uncertain etiology, probably muscle cramps with deep venous thrombus scan being negative with the patient on Eliquis. 5. Electrolyte imbalance with a moderate hypomagnesemia now back to baseline levels. 6. Acute renal failure, probably prerenal azotemia, improved to baseline levels with fluids. 7. Diabetes mellitus, type 2, on Toujeo and sliding scale showing to be stable. 8. History of hemorrhagic stroke in 2013 with residual bilateral lower extremity weakness and left-sided facial paralysis. 9. Chronic pain management on oxycodone. 10. Morbid obesity with concerns for possible pickwickian syndrome resulting in some of his hypoxemia with the patient showing good response with BiPAP and CPAP at night with some probable obstructive sleep apnea. PLAN: The patient has been afebrile now for 24 hours. He is responding well to current treatment plan with current antibiotic coverage with azithromycin and Rocephin. I did increase his Baclofen to 10 mg t.i.d. to see if this will assist in decreasing some of his muscle cramps in his right leg. He is doing well on sliding scale. He did visit with [facility] in consideration of possibly going to [facility] for continued rehabilitation efforts which would definitely benefit him, especially in his speech as he does have some issues with some aspiration or choking at times due to his previous stroke. Will await culture results of the urine and sputum to target antibiotic therapy as appropriate. Anticipate discharging tomorrow as he remains at least afebrile for another 24 hours with repeat of chest x-ray in the morning. The patient is receiving aggressive pulmonary hygiene and certainly is at high risk for some continued complications from pneumonia given his generalized weakness and past medical history. Will continue with parenteral antibiotics and hopefully transition to oral antibiotics tomorrow. Until he can transition to outpatient management will continue to monitor and treat as needed. Once discharged he will need close followup with Dr. Booker, his primary care provider. #[id number] [facility]
[2018-08-20] MEDS ORDERED: KETOROLAC TROMETHAMINE INJ 60 MG/2 ML VIAL IM ONE (20:54)
[2018-08-20] MEDS: ACETAMINOPHEN 325 MG TAB PO PRN (22:14)
[2018-08-21] MEDS: SODIUM CHLORIDE 0.9% 1000ML 1,000 ML IVS PRN (03:12)
[2018-08-21] MEDS: INSULIN LISPRO 100 UNITS/ML PEN SUBCU SCH ×4 (07:23→21:00)
[2018-08-21] MEDS ORDERED: SODIUM CHL 0.9% 50ML MIN-BAG+ 50 ML IVPB ONE (08:05)
[2018-08-21] MEDS ORDERED: cefTRIAXone SODIUM 1 GM VIAL ONE (08:06)
[2018-08-21] MEDS: LISINOPRIL 10 MG TAB PO SCH (08:32)
[2018-08-21] MEDS: carBAMazepine 200 MG TAB PO SCH ×3 (08:32→21:06)
[2018-08-21] MEDS: APIXABAN 2.5 MG TAB PO SCH (08:34)
[2018-08-21] MEDS: CHLORTHALIDONE 25 MG TAB PO SCH ×2 (08:34→21:04)
[2018-08-21] MEDS: GABAPENTIN 300 MG CAP PO SCH ×3 (08:36→21:05)
[2018-08-21] MEDS: BACLOFEN 10 MG TAB PO SCH ×3 (08:36→21:05)
[2018-08-21] MEDS: CARVEDILOL 12.5 MG TAB PO SCH ×2 (08:37→21:03)
[2018-08-21] MEDS: amLODIPine BESYLATE 5 MG TAB PO SCH ×2 (08:37→21:06)
[2018-08-21] MEDS: cefTRIAXone SODIUM 1 GM in SODIUM CHL 0.9% 50ML MIN-BAG+ 50 ML IVPB SCH (08:38)
[2018-08-21] MEDS: IPRATROPIUM/ALBUTEROL 3 ML VIAL INH SCH ×4 (09:10→19:56)
[2018-08-21] MEDS: ACETAMINOPHEN 325 MG TAB PO PRN (09:44)
[2018-08-21] MEDS ORDERED: KETOROLAC TROMETHAMINE INJ 60 MG/2 ML VIAL IM ONE (11:05)
[2018-08-21] MEDS ORDERED: AZITHROMYCIN IV 500 MG VIAL IVPB ONE (16:17)
[2018-08-21] MEDS ORDERED: SODIUM CHLORIDE 0.9% 250ML 250 ML ONE (16:17)
[2018-08-21] MEDS: AZITHROMYCIN IV 500 MG in SODIUM CHLORIDE 0.9% 250ML 250 ML IVPB SCH (16:25)
--- NOTE | 2018-08-21 17:52 | PN ---
DATE: 08/21/18 SUPERVISING PHYSICIAN: Lenard Melendez M.D. SUBJECTIVE: The patient complains of significant right lower extremity pain today. I have reviewed the records and he does not have a DVT. There is no abnormal swelling in that leg. He states that it starts in his butt on the right and extends down the leg consistent with sciatica pain which he states he has never been diagnosed with. OBJECTIVE: Blood pressure 136/97, heart rate 87, respiratory rate 20, temperature 98.6, oxygen saturation 96% . GENERAL: Mr. Henao is a 38 year-old male patient who is in mild distress secondary to pain. NEUROLOGIC: The patient is alert. LUNGS: Diminished but otherwise clear to auscultation bilaterally. CARDIOVASCULAR: Regular rate and rhythm. Normal S1 and S2. ABDOMEN: Soft. Positive bowel sounds. EXTREMITIES: Lower extremities no significant edema. 2+ pulses. Capillary refill less than 2 seconds. ASSESSMENT: 1. Left sided pneumonia. 2. Urinary tract infection. 3. Hypoxia secondary to #1. 4. Right lower extremity pain consistent with sciatica. 5. Electrolyte imbalance. 6. Acute kidney injury. 7. Diabetes mellitus, type 2. 8. Chronic pain management on oxycodone. 9. Obesity hypoventilation syndrome. PLAN: I am going to give him a dose of Toradol and see if that helps with the sciatica. I am not sure how much relief he would get with a physical therapy type of scenario as the patient has residual effects from a previous stroke. He also does not want to go to rehab. He states that he has to take care of some kids at home. For now will continue current medications and reevaluate him tomorrow. Hopefully he can go home tomorrow and we can potentially get home health with physical therapy at home. #[id number] [facility]
[2018-08-21] MEDS: IV SET AND CAP CHANGE INJ INJ SCH (21:08)
[2018-08-21] MEDS: IBUPROFEN 400 MG TAB PO PRN (22:42)
[2018-08-22] MEDS: SODIUM CHLORIDE 0.9% 1000ML 1,000 ML IVS PRN (01:09)
[2018-08-22] MEDS ORDERED: cloNIDine HCL 0.1 MG TAB PO ONE (02:00)
[2018-08-22] MEDS ORDERED: hydrALAZINE HCl 20 MG/ML VIAL IV ONE (03:30)
[2018-08-22 06:17] VITALS: BP 159/80
[2018-08-22] MEDS: INSULIN LISPRO 100 UNITS/ML PEN SUBCU SCH ×2 (07:47→11:44)
[2018-08-22] MEDS ORDERED: SODIUM CHL 0.9% 50ML MIN-BAG+ 50 ML IVPB ONE (07:49)
[2018-08-22] MEDS ORDERED: cefTRIAXone SODIUM 1 GM VIAL ONE (07:50)
[2018-08-22] MEDS: IBUPROFEN 400 MG TAB PO PRN (08:33)
[2018-08-22] MEDS: LISINOPRIL 10 MG TAB PO SCH (08:34)
[2018-08-22] MEDS: GABAPENTIN 300 MG CAP PO SCH (08:34)
[2018-08-22] MEDS: amLODIPine BESYLATE 5 MG TAB PO SCH (08:34)
[2018-08-22] MEDS: APIXABAN 2.5 MG TAB PO SCH (08:34)
[2018-08-22] MEDS: CHLORTHALIDONE 25 MG TAB PO SCH (08:35)
[2018-08-22] MEDS: CARVEDILOL 12.5 MG TAB PO SCH (08:35)
[2018-08-22] MEDS: BACLOFEN 10 MG TAB PO SCH (08:35)
[2018-08-22] MEDS: carBAMazepine 200 MG TAB PO SCH (08:35)
[2018-08-22] MEDS: cefTRIAXone SODIUM 1 GM in SODIUM CHL 0.9% 50ML MIN-BAG+ 50 ML IVPB SCH (08:39)
[2018-08-22] MEDS ORDERED: KETOROLAC TROMETHAMINE INJ 60 MG/2 ML VIAL IM ONE ×2 (08:45→08:46)
[2018-08-22] MEDS: IPRATROPIUM/ALBUTEROL 3 ML VIAL INH SCH (09:15)
[2018-08-22 10:26] VITALS: TEMP 98.6
--- NOTE | 2018-08-22 11:45 | DS ---
SUPERVISING PHYSICIAN: Fred Melendez MD ADMISSION DIAGNOSIS: 1. Hypoxia secondary to severe atelectasis. 2. Right leg pain. 3. Electrolyte imbalance. 4. Acute renal failure. 5. Previous hemorrhagic stroke with residual bilateral lower extremity weakness and left-sided facial paralysis. 6. Diabetes mellitus, type 2. 7. Chronic pain management. 8. Morbid obesity. DISCHARGE DIAGNOSIS: 1. Left sided pneumonia. 2. Urinary tract infection. 3. Hypoxia secondary to #1. 4. Sciatica. 5. Electrolyte imbalance. 6. Acute kidney injury. 7. Diabetes mellitus, type 2. 8. Chronic pain management on oxycodone. 9. Obesity hypoventilation syndrome. HOSPITAL COURSE: This is a 38-year-old male patient who presented to the Emergency Room with right lower extremity pain. He had a previous hemorrhagic stroke which resulted in some debilitation. He is wheelchair dependent, but able to transfer on a regular basis. Apparently he had an episode where he had fallen out of his wheelchair while going down a ramp. He normally has some lower extremity pain on the right, but it is significantly worse over the last week or so. He has been laying in bed in the position as that was the only position he could get comfortable in. He has been utilizing [facility] for his pain management and has been taking oxycodone for the pain. In the Emergency Room, he was hypoxic and hypertensive. He was given breathing treatments and placed on nasal cannula which showed improvement in his oxygenation. Chest x-ray did not show any pneumonia initially, but was consistent with atelectasis. The patient was started on BiPAP in the Emergency Room due to the atelectasis and hypoxia. Throughout the admission, he was actually taken off the BiPAP and did fairly well, however, his body habitus condition warrants that he probably has obstructive sleep apnea. He has not been tested for this. Additionally, he was placed on antibiotics for coverage of community acquired pneumonia as well as urinary tract infection. Both of those cultures were done as well as blood cultures. Blood cultures have been negative so far and the sputum and urine culture are still pending initial identification. Vital signs have been acceptable. He has still complained of right leg pain. It starts in the posterior right buttocks and extends down the leg. It is most consistent with sciatica and I instructed him that position changes are mandatory and he cannot lay in one position. Additionally, he is already on gabapentin for neuropathy. He is on baclofen as well. He also takes ibuprofen at home. He did respond to some Toradol here, however, we need to be cautious about the nonsteroidal anti-inflammatories that are used in this patient on a regular basis. Today, he wishes to go home and he is stable for that at this time. I have ordered Levaquin and sent that electronically to [facility]. His activities will be as tolerated and increase as tolerated. He was offered rehab, but refused that due to the fact that he states he kids he needs to take care of at home. My recommendation is that he get an outpatient sleep study as he states he does not sleep much and I feel like he probably has obstructive sleep apnea. #[id number] [facility]
[2018-08-22 12:34] VITALS: O2SAT 93
== END 2018-08-22 11:35 | disposition home or self-care (01) | DRG 194 ==
LOC: ER 13:45 → MS 16:56
PROVIDERS: ADMIT Nurse Practitioner Family; ATTEND Nurse Practitioner
DX: J18.9 Pneumonia, unspecified organism (principal); N39.0 Urinary tract infection, site not specified; N17.9 Acute kidney failure, unspecified; E66.2 Morbid (severe) obesity with alveolar hypoventilation; G82.20 Paraplegia, unspecified; J98.11 Atelectasis; R09.02 Hypoxemia; G47.33 Obstructive sleep apnea (adult) (pediatric); M54.31 Sciatica, right side; E11.9 Type 2 diabetes mellitus without complications; E83.42 Hypomagnesemia; G89.29 Other chronic pain; I69.365 Other paralytic syndrome following cerebral infarction, bilateral; I69.392 Facial weakness following cerebral infarction; Z79.891 Long term (current) use of opiate analgesic; Z99.3 Dependence on wheelchair; Z86.711 Personal history of pulmonary embolism; Z86.718 Personal history of other venous thrombosis and embolism; Z79.02 Long term (current) use of antithrombotics/antiplatelets; Z79.4 Long term (current) use of insulin; Z79.899 Other long term (current) drug therapy

== ENCOUNTER 2020-01-14 07:59 | Emergency (ER) | payer MEDICARE, MEDICAID ==
--- NOTE | 2020-01-14 08:07 | ED.PDOC ---
History of Present Illness - General Chief Complaint: Chest Pain/LA Time Seen by Provider: 01/14/20 08:01 - History of Present Illness Initial Comments: 39 M +pmh on Eliquis presents to ED c/o new onset non-radiating CP at rest that began this morning. Associated SOB but states he has COPD and is on home supplemental oxygen. He endorses chronic unchanged RLE edema with compression stocking in place. + h/o similar sx's several years ago. No known allev iating/aggravating factors. Denies associated palpitations, cough, headache, abd pain, back pain, n/v/d, f/c. Pt is otherwise with no other complaints. 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 Allergies/Adverse Reactions: Allergies NO KNOWN ALLERGY Allergy (Verified 08/18/18 17:34) Home Medications: Ambulatory Orders Amlodipine Besylate 5 mg PO BID 08/18/18 Apixaban [Eliquis] 5 mg PO DAILY 08/18/18 Baclofen 10 mg PO BID 08/18/18 Carbamazepine 300 mg PO TID 08/18/18 Carvedilol 25 mg PO BID 08/18/18 Chlorthalidone 50 mg PO BID 08/18/18 Clonazepam 1 mg PO DAILY 08/18/18 Gabapentin 600 mg PO TID 08/18/18 Insulin Glargine [Toujeo Solostar] 55 unit SC DAILY 08/18/18 Insulin Lispro [Humalog] 0 unit SC QID PRN 08/18/18 Lisinopril 40 mg PO DAILY 08/18/18 Multiple Vitamins W/ Minerals [Centrum] 1 tab PO DAILY 08/18/18 Review of Systems - Review of Systems Constitutional: Denies: chills, fever EENTM: Denies: blurred vision, nose congestion Respiratory: States: short of breath. Denies: cough Cardiology: States: chest pain, edema - chronic, unchanged. Denies: palpitations Gastrointestinal/Abdominal: Denies: abdominal pain, diarrhea, nausea, vomiting Genitourinary: Denies: dysuria, frequency Musculoskeletal: Denies: back pain, muscle pain Skin: Denies: change in color, rash Neurological: Denies: headache, weakness - denies focal or acute weakness Endocrine: Denies: excessive sweating, intolerance to cold Hematologic/Lymphatic: States: blood clots. Denies: easy bleeding Past Medical History (General) - Patient Medical History Hx Seizures: Yes Hx Stroke: Yes - 2013 Hx Dementia: No Hx Asthma: Yes Hx of COPD: No Hx Cardiac Disorders: Yes Hx Congestive Heart Failure: No Hx Pacemaker: No Hx Hypertension: Yes Hx Thyroid Disease: No Hx Diabetes: Yes Hx Gastroesophageal Reflux: No Hx Renal Disease: No Hx Cancer: No Hx of HIV: No Hx Hepatitis C: No Hx MRSA: No - Vaccination History Hx Tetanus, Diphtheria Vaccination: Yes Hx Influenza Vaccination: No Hx Pneumococcal Vaccination: No - Social History Hx Tobacco Use: No Hx Chewing Tobacco Use: No Hx Alcohol Use: No Hx Substance Use: No Hx Substance Use Treatment: Yes Hx Depression: Yes Hx Physical Abuse: No Hx Emotional Abuse: No Hx Suspected Abuse: No - Female History Patient : No Family Medical History - Family History Grandparents Family History: No Known Living Status: Still Living Hx Family Diabetes: Yes Physical Exam - Physical Exam General Appearance: Alert, Other - Morbid BMI, mild distress, non-toxic appearing Eyes, Ears, Nose, Throat Exam: PERRL/EOMI, other - no scleral icterus Neck: supple, normal inspection, other - no JVD Respiratory: no respiratory distress, no accessory muscle use, other - mild intermittent course breath sounds throughout, no crackles, no wheezes, no tachypnea Cardiovascular/Chest: normal peripheral pulses, tachycardia, other - regular rhythm, trace pitting edema BLE that is symmetric with compression stocking in place on RLE Gastrointestinal/Abdominal: normal bowel sounds, soft Extremity: non-tender, normal capillary refill, pedal edema Neurologic: [place] II-XII nml as tested, alert, normal mood/affect, oriented x 3 Skin Exam: normal color, other - no rash, no jaundice Progress - Progress Progress: Presents with concern for ACS vs PE vs acute HF. I will perform imaging, EKG, labs, provide appropriate pharmacotherapy, and continue to monitor/reassess. Dispo will depend on imaging results and overall course in ED; however, admission is expected due to presentation and comorbidities. HEART score 4. Does not satisfy PERC criteria. WELLs score 6 intermediate risk. 0916: Rechecked pt. NAD, VSS, and is with improved pain at this time. He states he "feels like he can go home now". I have discussed current labs results, imaging, results, and EKG findings. I have discussed need for delta troponin and pt agrees with plan. 11:09 Rechecked pt. NAD, VSS, and is feeling improved with pain 11/25. Discussed need for admission and pt agrees with plan; including transfer if required. I have spoken with hospitalist and pt will require transfer due to lack of Cardiology and potential need for PCI, also not available here. 12:14 PM RN notified pt is considering leaving AMA. Rechecked pt. I have discussed need for admission with pt again. I have discussed the severity of his condition and life-threatening implications it has. Pt is aware that he can refuse admission/transfer but that it is in his best interest. Pt now agrees again with transfer for admission. 12:16 PM I have consulted with Dr. Monson of [facility] and discussed pt's case in ED along with current findings. He accepts transfer and agrees with Heparin drip but does not recommend Heparin bolus since pt is on Eliquis daily. Damien Alvarez DO Emergency Medicine Physician [id number] - Results/Orders Results/Orders: EKG @0757: read @0800. Sinus tachycardia @ 115, nl axis, [id number], VT and QTc wnl, no ST elevations/depressions, nonspecific ST/T-wave changes, Q-waves in inferior leads, poor R-wave progression. No STEMI. Compared with 08/18/2018 EKG: progression of q-waves in inferior leads; otherwise, no change concerning for acute ischemia. Repeat EKG @1100: read @1104. Sinus tachycardia @103, nl axis, [id number], VT and QTc wnl, no ST elevations/depressions, nonspecific ST/T-wave changes, Q-waves in inferior leads, poor R-wave progression. No STEMI. No significant change from prior. 01/14/20 08:15 EKG STAT 01/14/20 12:30 HEPARIN PREMIX INFUSION @ 12 UNITS/KG/HR Heparin Premix [Heparin/D5w 25,000U/500ML] 25,000 units Premix Bag 1 bag IVS PRN Laboratory Tests 01/14/20 01/14/20 01/14/20 08:20 08:20 08:20 WBC 6.2 RBC 5.33 Hgb 17.6 Hct 51.5 MCV 96.5 H MCH 33.1 H MCHC 34.3 RDW 12.7 Plt Count 255 MPV 8.6 Absolute Neuts (auto) 4.40 Absolute Lymphs (auto) 1.20 Absolute Monos (auto) 0.40 Absolute Eos (auto) 0.10 Absolute Basos (auto) 0.10 Neutrophils % 71.3 Lymphocytes % 19.7 L Monocytes % 6.1 Eosinophils % 2.0 Basophils % 0.9 D-Dimer, Quantitative Sodium 135 Potassium 4.0 Chloride 94 L Carbon Dioxide 29 Anion Gap 16.0 BUN 36 H Creatinine 1.37 H BUN/Creatinine Ratio 26.3 H Random Glucose 357 H Serum Osmolality 292.8 Calcium 8.8 Magnesium 1.9 Total Bilirubin 0.6 AST 50 H ALT 70 H Alkaline Phosphatase 141 H Troponin I 0.03 Serum Total Protein 7.3 Albumin 3.7 Globulin 3.6 H Albumin/Globulin Ratio 1.0 L 01/14/20 01/14/20 08:20 10:10 WBC RBC Hgb Hct MCV MCH MCHC RDW Plt Count MPV Absolute Neuts (auto) Absolute Lymphs (auto) Absolute Monos (auto) Absolute Eos (auto) Absolute Basos (auto) Neutrophils % Lymphocytes % Monocytes % Eosinophils % Basophils % D-Dimer, Quantitative 135.0 Sodium Potassium Chloride Carbon Dioxide Anion Gap BUN Creatinine BUN/Creatinine Ratio Random Glucose Serum Osmolality Calcium Magnesium Total Bilirubin AST ALT Alkaline Phosphatase Troponin I 0.07 H* Serum Total Protein Albumin Globulin Albumin/Globulin Ratio EXAM DESCRIPTION: Chest,1 View CLINICAL HISTORY: 39 years Male, CP, SOB COMPARISON: August 19, 2018 Findings: One view(s)/radiograph(s) Low lung volumes with persistent elevation of the right hemidiaphragm. Cardiac silhouette and pulmonary vasculature are within normal limits. No pneumothorax. No pleural effusion. No focal consolidation. No acute osseous abnormality. IMPRESSION: Chronic findings. No acute cardiopulmonary abnormality. Electronically signed by: Connor Cam MD 01/14/2020 8:20 AM CDT Vital Signs - 24 hr 01/14/20 01/14/20 01/14/20 08:01 08:10 08:24 Temperature 98.2 F Pulse Rate [ 112 H 112 H left brachial] Respiratory 20 20 20 Rate Blood Pressure 175/131 162/125 [left brachial] O2 Sat by Pulse 94 L 96 Oximetry 01/14/20 01/14/20 01/14/20 08:51 10:00 10:30 Temperature 97.9 F Pulse Rate [ 110 H 105 H 105 H left brachial] Respiratory 17 21 17 Rate Blood Pressure 162/114 147/104 124/86 [left brachial] O2 Sat by Pulse 90 L 91 L 100 Oximetry 01/14/20 01/14/20 11:30 12:12 Temperature 98.0 F Pulse Rate [ 104 H 100 H left brachial] Respiratory 24 21 Rate Blood Pressure 137/109 130/96 [left brachial] O2 Sat by Pulse 95 96 Oximetry Departure - Departure Clinical Impression: NSTEMI (non-ST elevated myocardial infarction), Obesity hypoventilation syndrome, Elevated serum creatinine Diabetes mellitus type 2, uncontrolled Qualifiers: Glycemic state: with hyperglycemia Qualified Code(s): E11.65 - Type 2 diabetes mellitus with hyperglycemia Time of Disposition: 10:51 Disposition: Transfer to Hospital Condition: Fair Departure Forms: ED Discharge - Pt. Copy, Patient Portal Self Enrollment Instructions: DI for Chest Pain Referrals: Conner Booker MD [Primary Care Provider] - 1-2 Weeks Home Medications: Ambulatory Orders Amlodipine Besylate 5 mg PO BID 08/18/18 Apixaban [Eliquis] 5 mg PO DAILY 08/18/18 Baclofen 10 mg PO BID 08/18/18 Carbamazepine 300 mg PO TID 08/18/18 Carvedilol 25 mg PO BID 08/18/18 Chlorthalidone 50 mg PO BID 08/18/18 Clonazepam 1 mg PO DAILY 08/18/18 Gabapentin 600 mg PO TID 08/18/18 Insulin Glargine [Toujeo Solostar] 55 unit SC DAILY 08/18/18 Insulin Lispro [Humalog] 0 unit SC QID PRN 08/18/18 Lisinopril 40 mg PO DAILY 08/18/18 Multiple Vitamins W/ Minerals [Centrum] 1 tab PO DAILY 08/18/18 Critical Care Note - Critical Care Note Total Time (mins): 37 Comments: management for potential cardiac failure pt with NSTEMI I have not taken over case from a colleague. I have reviewed pt's chart, executed workup and disposition, reviewed all labs ekgs and CXR. I have given medications for appropriate management of medical condition. Transfer to Outside Facility - Transfer Information Decision to Transfer Date: 01/14/20 Decision to Transfer Time: 11:10 Reason for Transfer: required specialist not available Accepting Facility: [facility]
--- NOTE | 2020-01-14 08:22 | RAD ---
EXAM DESCRIPTION: Chest,1 View CLINICAL HISTORY: 39 years Male, CP, SOB COMPARISON: August 19, 2018 Findings: One view(s)/radiograph(s) Low lung volumes with persistent elevation of the right hemidiaphragm. Cardiac silhouette and pulmonary vasculature are within normal limits. No pneumothorax. No pleural effusion. No focal consolidation. No acute osseous abnormality. IMPRESSION: Chronic findings. No acute cardiopulmonary abnormality. Electronically signed by: Connor Cam MD 01/14/2020 8:20 AM CDT
[2020-01-14] MEDS ORDERED: ASPIRIN TABLET 325 MG TAB ONE (08:26)
[2020-01-14] MEDS: ASPIRIN (ENTERIC COATED) 325 MG TAB PO ONE (08:29)
[2020-01-14] MEDS: ASPIRIN TABLET 325 MG TAB PO ONE (08:29)
[2020-01-14] MEDS: NITROGLYCERIN 0.4 MG 25 EA TAB SL ONE ×2 (10:18→10:59)
[2020-01-14] MEDS: ACETAMINOPHEN 500 MG TAB PO ONE (10:18)
[2020-01-14] MEDS: fentaNYL CITRATE INJ 50 MCG/ML AMP IV ONE (10:41)
[2020-01-14 11:59] VITALS: TEMP 98
[2020-01-14] MEDS: HEPARIN PREMIX 25,000 UNITS in PREMIX BAG 1 BAG IVS SCH (12:59)
[2020-01-14 13:39] VITALS: BP 132/103; O2SAT 95
== END 2020-01-14 13:35 | disposition short-term general hospital (02) ==
LOC: ER 07:59
DX: I21.4 Non-ST elevation (NSTEMI) myocardial infarction (principal); E66.2 Morbid (severe) obesity with alveolar hypoventilation; R94.4 Abnormal results of kidney function studies; E11.65 Type 2 diabetes mellitus with hyperglycemia; R00.0 Tachycardia, unspecified; R60.0 Localized edema; J44.9 Chronic obstructive pulmonary disease, unspecified; I10 Essential (primary) hypertension; R56.9 Unspecified convulsions; I51.9 Heart disease, unspecified; F32.9 Major depressive disorder, single episode, unspecified; Z99.81 Dependence on supplemental oxygen; Z68.41 Body mass index [BMI] 40.0-44.9, adult; Z86.73 Personal history of transient ischemic attack (TIA), and cerebral infarction without residual deficits; Z79.899 Other long term (current) drug therapy; Z79.01 Long term (current) use of anticoagulants; Z79.4 Long term (current) use of insulin
CPT/HCPCS: 36415; 71045; 80053; 83735; 84484; 85025; 85379; 93005; J1644; J3010